=== PATIENT | male | born 1990 | race Caucasian/White ===

== ENCOUNTER → 2020-03-16 | Outpatient (CLI) | payer BC, SELFPAY ==
[2019-09-23 13:11] VITALS: BMI 24.0
== END | disposition home or self-care (01) ==
LOC: LABSPEC 11:10
DX: R50.9 Fever, unspecified (principal); M79.10 Myalgia, unspecified site; R51 Headache
CPT/HCPCS: 87635; G2023; U0003

== ENCOUNTER → 2021-09-02 | Outpatient (CLI) | payer MEDICARE, SELFPAY | END | disposition home or self-care (01) | LOC: LABSPEC 13:40 | PROVIDERS: Referring Provider Physician Assistant; Visit Provider Physician Assistant | DX: Z11.52 Encounter for screening for COVID-19 (principal) | CPT/HCPCS: 87635; U0005; U0003 ==

== ENCOUNTER → 2024-08-24 | Outpatient (CLI) | payer OTHER, SELFPAY ==
--- NOTE | 2024-08-24 12:39 | RAD_ITS ---
INDICATION: CONTUSION OF R RING FINGER WITHOUT DAMAGE TO NAIL EXAMINATION/TECHNIQUE: X-RAY - RIGHT HAND XR Fingers 3 VIEWS COMPARISON: FINDINGS: SOFT TISSUES: No soft tissue swelling or gas. No radiopaque foreign body. BONES/JOINTS: There is a nondisplaced fracture of the distal phalanx of the fourth finger. Preservation of the joint space.. No sclerotic or destructive changes observed. RAD/Finger(s) Min 2 Views IMPRESSION: There is a nondisplaced fracture of the distal phalanx of the fourth finger. Electronically Signed: Aman Flores DO at 16:12 EST Reading Location ID and State: [facility] / [place] Tel [phone], Service support ,
== END | disposition home or self-care (01) ==
LOC: RAD 12:16
PROVIDERS: Referring Provider Nurse Practitioner Family; Visit Provider Nurse Practitioner Family
DX: S60.041A Contusion of right ring finger without damage to nail, initial encounter (principal)
CPT/HCPCS: 73140

== ENCOUNTER 2025-04-06 14:57 | Inpatient (IN) | payer SELFPAY ==
[2025-04-06 14:57] VITALS: BP 146/82; PULSE 112; RESP 14; TEMP 36.1; O2SAT 98; BMI 35.5
--- NOTE | 2025-04-06 15:46 | EX.ED.SAOD ---
HPI History of Present Illness Chief Complaint: Substance Abuse Informant: patient Narrative Narrative: Presents for assistance for fentanyl dependence. He has been using for years. Does not inject he is taking snorts. He uses up to half a gram a day. Last use was this morning. He states by afternoon he would have withdrawal symptoms of cramping and nausea and he cannot sleep. He denies alcohol use denies other recreational drugs. He went to detox in 2020 he states he was able to maintain initially however relapsed. He heard about the program here. Denies suicidal or homicidal ideations. Denies any allergies. Prior similar symptoms: Yes [facility] Medical History Fracture of distal phalanx of right ring finger Chest pain History of stomach ulcers Home Medications ?Medication ?Instructions ?Recorded ?Last Taken ?Type NK 09/30/24 Unknown History Allergy/AdvReac Type Severity Reaction Status Date / Time No Known Allergies Allergy Verified 04/06/25 14:57 Family History Other CVA (cerebral vascular accident) Cancer Diabetes Hypertension Myocardial infarction Social History (Updated 04/06/25 @ 15:47 by Marina Kwon) housing: house Smoking Status: Current every day smoker tobacco type: cigarettes alcohol intake: never ROS ROS ED Constitutional Constitutional ED: Denies fever(s) Cardiovascular Cardiovascular: Denies chest pain Respiratory/Chest Respiratory/Chest: Denies cough Gastrointestinal Gastrointestinal: Denies diarrhea or vomiting Musculoskeletal Musculoskeletal: Denies none Integumentary Denies rash or wounds Neurologic Neurologic: Denies weakness Psychiatric Psychiatric: Denies suicidal ideation or suicidal thoughts EXAM Physical Exam Const Vital Signs: 04/06/25 14:57 04/06/25 16:03 Temperature 97 F L 97 F L Temperature Source Temporal Pulse Rate 112 H 112 H Respiratory Rate 14 14 Blood Pressure 146/82 H 146/82 H Blood Pressure Mean 103 103 Pulse Ox 98 98 Oxygen Delivery Method Room Air Positive well nourished and well developed General Appearance ED: well developed HEENT normocephalic and atraumatic Eyes General Eye ED: Yes normal appearance of both eyes Neck full ROM Resp normal respiratory effort and normal air movement Cardio regular rhythm Rate: tachycardic GI soft to palpation Extremity normal to inspection and full ROM Neuro oriented x3 Psych Psych Narrative: No suicidal or homicidal ideations. Skin no rashes or lesions noted and no wounds Skin Narrative: No needle tracks noted on the arms. MDM MDM MDM Narrative Medical decision making narrative: Interventions / MDM: Differential diagnosis: Fentanyl dependence, fentanyl withdrawal Diagnosis considered but do not suspect: N/A My EKG interpretation: N/A Imaging independently reviewed and interpreted by myself: N/A External documents reviewed: N/A Test considered but not ordered:N/A ED course: Nontoxic here for assistance with fentanyl with dependence. No current withdrawal symptoms. Slight tachycardic on arrival. He is nontoxic. Will obtain labs tox screen and alcohol levels. I did speak with hospitalist Dr. Mcintyre for admission. Labs are pending. Toxicology fentanyl cocaine and THC. Labs stable. Re-evaluation: stable Disposition discussed with patient/family/significant other: Patient Case discussed with consulting clinician: Hospitalist This note was generated with [employer] dictation software. It may contain incorrect words, spelling, and punctuation that were not noted in checking the note before signing. Lab Data Labs: Laboratory Results - last 24 hr 04/06/25 04/06/25 15:55 16:07 WBC 8.5 RBC 5.40 Hgb 16.3 Hct 48.2 MCV 89.3 MCH 30.2 MCHC 33.8 RDW Std Deviation 40.6 RDW Coeff of Monica 12.4 Plt Count 322 MPV 9.6 Immature Gran % (Auto) 0.400 Neut % (Auto) 45.5 L Lymph % (Auto) 40.8 [place] % (Auto) 6.8 Eos % (Auto) 5.9 H Baso % (Auto) 0.6 Absolute Neuts (auto) 3.9 Absolute Lymphs (auto) 3.48 Nucleated RBC % 0 Sodium 139 Potassium 3.2 L Chloride 100 Carbon Dioxide 27.7 Anion Gap 12 BUN 12 Creatinine 0.93 Estim Creat Clear Calc 129.21 Est GFR (MDRD) Non-Af 111 BUN/Creatinine Ratio 12.9 Glucose 62 L Calcium 9.7 Phosphorus 3.1 Magnesium 2.3 H Total Bilirubin 0.22 AST 16 ALT 23 Alkaline Phosphatase 93 Total Protein 7.5 Albumin 4.7 Globulin 2.8 Albumin/Globulin Ratio 1.7 Urine Opiates Screen NEGATIVE U Buprenorphine Qual NEGATIVE Ur Oxycodone Screen NEGATIVE Urine Methadone Screen NEGATIVE Urine Fentanyl Screen PRESUMPTIVE POSITIVE Ur Barbiturates Screen NEGATIVE Ur Phencyclidine Scrn NEGATIVE Ur Amphetamines Screen NEGATIVE U Benzodiazepines Scrn NEGATIVE Urine Cocaine Screen PRESUMPTIVE POSITIVE U Cannabinoids Screen PRESUMPTIVE POSITIVE Ethyl Alcohol < 10.1 Discharge Plan Dx/Rx/DC Orders Clinical Impression: Fentanyl dependence, Opioid withdrawal, Desire for detoxification Disposition Disposition: Acute Care Hospital [facility] Discharge Date/Time: 04/06/25 18:17
[2025-04-06 16:03] VITALS: BP 146/82; PULSE 112; RESP 14; TEMP 36.1; O2SAT 98
[2025-04-06 16:34] LABS: Hematocrit 48.2 % (40-54); Hemoglobin 16.3 g/dL (13.0-16.5); Immature Granulocytes Count 0.030 X10^3/uL (0.0-0.0); Mean Corp Hgb Conc 33.8 g/dL (32-36); Mean Corpuscular Volume 89.3 fL (80-94); Mean Platelet Vol. 9.6 fl (6.2-12.0); NRBC Flagged by Analyzer 0 % (0-5); Platelet Count 322 K/mm3 (150-450); RBC Distribution Width CV 12.4 % (11.6-14.6); RBC Distribution Width SD 40.6 fl (35.1-43.9); Red Blood Count 5.40 M/mm3 (4.6-6.2); White Blood Count 8.5 K/mm3 (4.4-11.0)
[2025-04-06 16:40] LABS: Alcohol, Blood (Medical)-Serum < 10.1 mg/dL (<=10.0)
--- NOTE | 2025-04-06 16:46 | PCM.HP.STD ---
HPI - General General Date of Admission: 04/06/25 Date of Service: 04/06/25 Chief Complaint: Opiate detox HPI Narrative MERRY FRANK, is a 34 M who presented to [facility] ED on 04/06/2025 for opiate detox. Patient snorts fentanyl on a daily basis. No IV drug use. Last use was this morning. He last went through inpatient detox back in 2020. Denies any withdrawal symptoms currently but states that typically in the late afternoon is when he started to have nausea with cramping, and he typically has difficulty sleeping while withdrawing. He denies any alcohol use or other recreational drug use. Denies tobacco use. Notably he states that his girlfriend went through detox here last week and had a good experience, and she is now at an inpatient treatment program in [place]. In the ED he had sinus tachycardia to the 100s but was otherwise hemodynamically stable on room air at rest. CBC and CMP were fairly benign. Given desire for detox, hospitalist was contacted for admission. I saw the patient at bedside in the ED. Patient was very pleasant. Was mildly fatigued appearing but otherwise sitting back comfortably in bed, conversing normally and in no acute distress. Denied any acute concerns at this time. Will be admitted for further management. [facility] Medical History Fracture of distal phalanx of right ring finger Chest pain History of stomach ulcers Home Medications ?Medication ?Instructions ?Recorded ?Last Taken ?Type NK 09/30/24 Unknown History Allergy/AdvReac Type Severity Reaction Status Date / Time No Known Allergies Allergy Verified 04/06/25 14:57 Family History Other CVA (cerebral vascular accident) Cancer Diabetes Hypertension Myocardial infarction Social History (Updated 04/06/25 @ 15:47 by Marina Kwon) housing: house Smoking Status: Current every day smoker tobacco type: cigarettes alcohol intake: never ROS Constitutional Constitutional: Reports fatigue; Denies chills, fever(s) or weakness Eyes Eyes: Denies change in vision Cardiovascular Cardiovascular: Denies chest pain Respiratory/Chest Respiratory/Chest: Denies shortness of breath at rest Gastrointestinal Gastrointestinal: Denies abdominal pain, nausea or vomiting Musculoskeletal Musculoskeletal: Denies arthralgias or myalgias Vital Signs Vital Signs Vital Signs: 04/06/25 14:57 04/06/25 16:03 Temperature 97 F L 97 F L Temperature Source Temporal Pulse Rate 112 H 112 H Respiratory Rate 14 14 Blood Pressure 146/82 H 146/82 H Blood Pressure Mean 103 103 Pulse Ox 98 98 Oxygen Delivery Method Room Air Weight Weight: 103 kg Body Mass Index (BMI) 35.5 Physical Exam Const alert, oriented x3 and no apparent distress Constitutional Narrative: Pleasant younger male, class I obesity, mildly fatigued appearing, otherwise sitting back comfortably in bed, conversing normally, in no acute distress. General Appearance: cooperative and comfortable HEENT normocephalic, head/scalp atraumatic, hearing grossly normal bilaterally, nasal mucous membranes and turbinates normal and moist oral mucous membranes Eyes PERRL, EOMs intact bilaterally and conjunctivae normal Neck full ROM Chest inspection of chest normal Resp normal respiratory effort, normal air movement, no use of accessory muscles and clear to auscultation bilaterally Cardio regular rate, regular rhythm, no murmurs and peripheral pulses 2+ throughout GI normal to inspection, nondistended, normoactive bowel sounds, soft to palpation, non-tender and non-distended Back/Spine normal ROM Extremity normal to inspection, full ROM and no pedal edema Skin no rashes or lesions noted Psych mental status grossly normal Results Lab / Micro Data 04/06/25 15:55 04/06/25 15:55 Labs: Laboratory Results - last 24 hr 04/06/25 15:55: WBC 8.5, RBC 5.40, Hgb 16.3, Hct 48.2, MCV 89.3, MCH 30.2, MCHC 33.8, RDW Std Deviation 40.6, RDW Coeff of Monica 12.4, Plt Count 322, MPV 9.6, Immature Gran % (Auto) 0.400, Neut % (Auto) 45.5 L, Lymph % (Auto) 40.8, [place] % (Auto) 6.8, Eos % (Auto) 5.9 H, Baso % (Auto) 0.6, Absolute Neuts (auto) 3.9, Absolute Lymphs (auto) 3.48, Nucleated RBC % 0, Ethyl Alcohol < 10.1 Assessment & Plan Assessment/Plan (1) Fentanyl dependence: (2) Desire for detoxification: PLAN: Plan Patient is a 34-year-old male who presented to [facility] ED on 04/06/2025 for opiate detox. 1. Opiate abuse with desire for detoxification, polysubstance abuse ? Admit under inpatient status to [facility] as a ramp patient. Case management consulted. Snorts fentanyl daily, last use on morning of admission. No IV drug use. Reported no other recreational drug use but notably urine drug screen is positive for fentanyl, cocaine and cannabinoids. Will treat with Subutex taper and other as needed medications per opiate withdrawal order set. Strongly encouraged cessation on discharge. 2. Mild hypokalemia ? Potassium 3.2 on admit. Mag and Phos normal. Repleted in ED, follow-up a.m. BMP. 3. Class I obesity ? BMI 34 on admit. Encouraged lifestyle modifications. DVT prophylaxis: Lovenox CODE STATUS: Full code, verified Expected disposition: TBD Total clinical time spent by myself addressing the patient's medical issues, reviewing all the data, and collaborating with patient's care team: 55 minutes. Charges/Coding Visit Charges Inpatient E&M: 48463 Init Hosp L2
[2025-04-06 16:48] LABS: AST(SGOT) 16 U/L (<=37); Alanine Aminotransfer ALT/SGPT 23 U/L (<=46); Albumin, Serum 4.7 g/dL (3.5-5.0); Alkaline Phosphatase 93 U/L (40-129); Anion Gap 12 (5-15); BUN 12 mg/dL (4-19); BUN/Creat Ratio 12.9 RATIO (10-20); Calcium,Total 9.7 mg/dL (7.6-11.0); Carbon Dioxide 27.7 mmol/L (21.0-32.0); Chloride 100 mmol/L (98-108); Estimated Creatinine Clearance 129.21 ml/min (50-250); Globulin 2.8 g/dL (2.2-4.2); Glucose 62 mg/dL (70-99); Potassium 3.2 mmol/L (3.3-5.1)
[2025-04-06 16:55] LABS: Barbiturate Urine NEGATIVE (< 200 ng/mL); Benzodiazepine Urine NEGATIVE (< 200 ng/mL); PCP Urine NEGATIVE (< 25 ng/mL); THC Urine PRESUMPTIVE POSITIVE (< 50 ng/mL)
[2025-04-06 17:00] VITALS: BP 112/71; PULSE 77; O2SAT 99
[2025-04-06 18:19] VITALS: BMI 34.4
[2025-04-06 18:21] LABS: Magnesium 2.3 mg/dL (1.5-2.2)
[2025-04-06] MEDS: Potassium Chloride Oral Tablet 20 MEQ 40 MEQ PO (18:41)
[2025-04-06 20:16] VITALS: BP 165/72; PULSE 82; RESP 18; TEMP 36.8; O2SAT 97
[2025-04-07 02:26] VITALS: BP 160/98; PULSE 65; RESP 16; TEMP 36.8; O2SAT 99
[2025-04-07 04:29] VITALS: BP 164/99; PULSE 72; RESP 18; TEMP 36.8; O2SAT 99
[2025-04-07 06:15] LABS: Hematocrit 44.7 % (40-54); Hemoglobin 15.3 g/dL (13.0-16.5); Mean Corp Hgb Conc 34.2 g/dL (32-36); Mean Corpuscular Volume 88.5 fL (80-94); Mean Platelet Vol. 9.3 fl (6.2-12.0); Platelet Count 297 K/mm3 (150-450); RBC Distribution Width CV 12.6 % (11.6-14.6); RBC Distribution Width SD 41.1 fl (35.1-43.9); Red Blood Count 5.05 M/mm3 (4.6-6.2); White Blood Count 8.7 K/mm3 (4.4-11.0)
[2025-04-07 06:16] VITALS: BP 162/111; PULSE 76; RESP 16; TEMP 36.7; O2SAT 100
[2025-04-07] MEDS: hydrOXYzine PAM 25 MG Capsule 50 MG PO ×2 (06:26→22:30)
[2025-04-07 06:40] LABS: Anion Gap 7 (5-15); BUN 9 mg/dL (4-19); BUN/Creat Ratio 11.7 RATIO (10-20); Calcium,Total 8.7 mg/dL (7.6-11.0); Carbon Dioxide 28.5 mmol/L (21.0-32.0); Chloride 106 mmol/L (98-108); Estimated Creatinine Clearance 153.71 ml/min (50-250); Glucose 92 mg/dL (70-99); Potassium 4.5 mmol/L (3.3-5.1)
[2025-04-07 07:58] VITALS: BP 134/88; PULSE 61; RESP 16; TEMP 36.6; O2SAT 100
--- NOTE | 2025-04-07 13:04 | ADDICTION ---
This director underwriter sales met with PT to conduct ASAM, MSE, AUDIT, DUDIT assessments and to plan for d/c. PT A+Ox4 and participated actively. All assessments completed. PT plans to f/u with outpatient treatment services, however he wanted to discuss it with his family upon d/c. This worker offered resources based on his listed wants and needs. PT did not indicate a need for [facility] transportation post d/c from [facility].
[2025-04-07 13:50] VITALS: BP 162/72; PULSE 87; RESP 16; TEMP 37.2; O2SAT 98
--- NOTE | 2025-04-07 15:33 | CHAPLAIN ---
Type of Pastoral Visit _x__ Initial Visit ___ Follow-up Visit ___ On-call Visit ___ General Patient Visit ___ Spiritual Assessment ___ Family Conference ___ Bereavement ___ Rapid Response ___ Code Blue ___ Other (describe below) Pastoral Care Referral From _x__ Patient ___ Family ___ Nurse ___ Physician ___ Cia Agent ___ Clinical Trial Educator ___ Other (describe below) Sacrament/Intervention _x__ Active listening ___ Anointing ___ Synagogue ___ Bereavement ___ Communion ___ Letty exploration ___ ___ Life review _x__ Prayer ___ Reconciliation ___ Sacrament of Sick _x__ Supportive presence ___ Wedding ___ Other (describe below) Pastoral Comments offer of support readily accepted and pt admits that he has tried numerous times to stop the addiction but has been unsuccessful, but I have to this time, I can't keep doing this, I'm done; affirmed desire and passion of patient; asked pt about his support, plans, and letty; pt reports on good family support, willingness to go to rehab, and open to letty although this hasn't been a part of his life; pt denies needing anything but repeats that he has appreciated the offer and the time given; pt does welcome a prayer at this time
--- NOTE | 2025-04-07 15:55 | CASEMGMT ---
Social Work- SW met with pt regarding self-pay status. Pt met with Dona/[employer] rep. Pend number: [id number]. SW provided Marilyn Garcia and [facility]DY card. Pt reports no additional resources needed at this time. RAY Artis
--- NOTE | 2025-04-07 16:29 | PN.HOSP_ITS ---
Reason for Visit Chief Complaint: Opiate detox Subjective Subjective Patient was beginning to feel restless in his legs earlier but is feeling better after getting Subutex, reports overall still feeling generally unwell but progressively improving Objective Data Objective Data Vital Signs: Vital Signs Temp Pulse Resp BP Pulse Ox O2 Del Method 98.9 F 87 16 162/72 H 98 Room Air 04/07/25 13:50 04/07/25 13:50 04/07/25 13:50 04/07/25 13:50 04/07/25 13:50 04/07/25 13:50 Oxygen Delivery Method Room Air Weight: 99.96 kg Body Mass Index (BMI) 34.4 Intake & Output: Intake and Output for Last 24 Hours 04/05/25 04/06/25 04/07/25 23:59 23:59 23:59 Intake Total 600 / 600 Balance 600 / 600 Lab / Micro Data 04/07/25 05:30 04/07/25 05:30 Labs: Laboratory Results - last 24 hr 04/06/25 15:55: WBC 8.5, RBC 5.40, Hgb 16.3, Hct 48.2, MCV 89.3, MCH 30.2, MCHC 33.8, RDW Std Deviation 40.6, RDW Coeff of Monica 12.4, Plt Count 322, MPV 9.6, Immature Gran % (Auto) 0.400, Neut % (Auto) 45.5 L, Lymph % (Auto) 40.8, [place] % (Auto) 6.8, Eos % (Auto) 5.9 H, Baso % (Auto) 0.6, Absolute Neuts (auto) 3.9, Absolute Lymphs (auto) 3.48, Nucleated RBC % 0, Sodium 139, Potassium 3.2 L, Chloride 100, Carbon Dioxide 27.7, Anion Gap 12, BUN 12, Creatinine 0.93, Estim Creat Clear Calc 129.21, Est GFR (MDRD) Non-Af 111, BUN/Creatinine Ratio 12.9, G lucose 62 L, Calcium 9.7, Phosphorus 3.1, Magnesium 2.3 H, Total Bilirubin 0.22, AST 16, ALT 23, Alkaline Phosphatase 93, Total Protein 7.5, Albumin 4.7, Globulin 2.8, Albumin/Globulin Ratio 1.7, Ethyl Alcohol < 10.1 04/06/25 16:07: Urine Opiates Screen NEGATIVE, U Buprenorphine Qual NEGATIVE, Ur Oxycodone Screen NEGATIVE, Urine Methadone Screen NEGATIVE, Urine Fentanyl Screen PRESUMPTIVE POSITIVE, Ur Barbiturates Screen NEGATIVE, Ur Phencyclidine Scrn NEGATIVE, Ur Amphetamines Screen NEGATIVE, U Benzodiazepines Scrn NEGATIVE, Urine Cocaine Screen PRESUMPTIVE POSITIVE, U Cannabinoids Screen PRESUMPTIVE POSITIVE 04/07/25 05:30: WBC 8.7, RBC 5.05, Hgb 15.3, Hct 44.7, MCV 88.5, MCH 30.3, MCHC 34.2, RDW Std Deviation 41.1, RDW Coeff of Monica 12.6, Plt Count 297, MPV 9.3, Sodium 142, Potassium 4.5, Chloride 106, Carbon Dioxide 28.5, Anion Gap 7, BUN 9, Creatinine 0.77, Estim Creat Clear Calc 153.71, Est GFR (MDRD) Non-Af 121, BUN/Creatinine Ratio 11.7, Glucose 92, Calcium 8.7 Physical Exam Narrative General: Alert, oriented, no apparent distress HEENT: Atraumatic, normocephalic Eyes: extraocular movements grossly intact Neck: Supple Respiratory: normal respiratory effort Cardiovascular: no edema appreciated GI: nondistended Extremities: Moving all extremities Neuro: No overt focal neurological deficits Psych: Cooperative Assessment & Plan Assessment/Plan (1) Fentanyl dependence: (2) Desire for detoxification: PLAN: Plan # Opiate abuse with desire for detoxification, polysubstance abuse ? Admit under inpatient status to [facility] as a ramp patient. Case management consulted. Snorts fentanyl daily, last use on morning of admission. No IV drug use. Reported no other recreational drug use but notably urine drug screen is positive for fentanyl, cocaine and cannabinoids. Will treat with Subutex taper and other as needed medications per opiate withdrawal order set. Strongly encouraged cessation on discharge. -04/07: Patient progressively improving, inpatient rehab was offered however patient has opted for follow-up with outpatient treatment services. Continue Subutex taper, likely DC on Thursday depending on patient's progress and symptoms # Mild hypokalemia ? Potassium 3.2 on admit. Mag and Phos normal. Repleted in ED, follow-up a.m. BMP. -04/07: Resolved #DVT ppx: Lovenox subcu Chiara Dennis MD Charges/Coding Visit Charges Inpatient E&M: 90887 Subs Hosp L1
[2025-04-07 22:14] VITALS: BP 146/88; PULSE 58; RESP 18; TEMP 36.8; O2SAT 99
[2025-04-08 06:32] VITALS: BP 129/90; PULSE 76; RESP 14; TEMP 36.9; O2SAT 98
[2025-04-08 08:35] VITALS: BP 154/98; PULSE 65; RESP 16; TEMP 36.9; O2SAT 99
--- NOTE | 2025-04-08 11:31 | ADDICTION ---
This junior copywriter met with client to discuss outpatient treatment options. Pt indicated interest in f/u with outpatient services with [facility]. He was provided with information for both agencies, including range of services, addresses and contact information. Pt did not indicate need for transportation.
[2025-04-08 14:14] VITALS: BP 155/95; PULSE 68; RESP 16; TEMP 37; O2SAT 100
--- NOTE | 2025-04-08 17:35 | PCM.PN.HOSP ---
Reason for Visit Chief Complaint: Opiate detox Subjective Subjective Patient continues to improve, no new or acute complaints, resting comfortably Objective Data Objective Data Vital Signs: Vital Signs Temp Pulse Resp BP Pulse Ox O2 Del Method 98.6 F 68 16 155/95 H 100 Room Air 04/08/25 14:14 04/08/25 14:14 04/08/25 14:14 04/08/25 14:14 04/08/25 14:14 04/08/25 14:50 Oxygen Delivery Method Room Air Weight: 99.96 kg Body Mass Index (BMI) 34.4 Intake & Output: Intake and Output for Last 24 Hours 04/06/25 04/07/25 04/08/25 23:59 23:59 23:59 Intake Total 1350 / 1350 Balance 1350 / 1350 Lab / Micro Data 04/07/25 05:30 04/07/25 05:30 Physical Exam Narrative General: Resting comfortably, wakes up and answers questions appropriately HEENT: Atraumatic, normocephalic Eyes: extraocular movements grossly intact Neck: Supple Respiratory: normal respiratory effort Cardiovascular: no edema appreciated GI: nondistended Extremities: Moving all extremities Neuro: No overt focal neurological deficits Psych: Cooperative Assessment & Plan Assessment/Plan (1) Fentanyl dependence: (2) Desire for detoxification: PLAN: Plan # Opiate abuse with desire for detoxification, polysubstance abuse ? Admit under inpatient status to [facility] as a ramp patient. Case management consulted. Snorts fentanyl daily, last use on morning of admission. No IV drug use. Reported no other recreational drug use but notably urine drug screen is positive for fentanyl, cocaine and cannabinoids. Will treat with Subutex taper and other as needed medications per opiate withdrawal order set. Strongly encouraged cessation on discharge. -04/07: Patient progressively improving, inpatient rehab was offered however patient has opted for follow-up with outpatient treatment services. Continue Subutex taper, likely DC on Thursday depending on patient's progress and symptoms -04/08: DC tomorrow with outpatient follow-up #DVT ppx: Lovenox subcu Chiara Dennis MD Charges/Coding Visit Charges Inpatient E&M: 62629 Subs Hosp L1
[2025-04-08 20:50] VITALS: BP 149/86; PULSE 60; RESP 16; TEMP 36.6; O2SAT 100
[2025-04-09 04:09] VITALS: BP 140/82; PULSE 68; RESP 16; TEMP 36.7; O2SAT 100
[2025-04-09 08:27] VITALS: BP 168/82; PULSE 57; RESP 16; TEMP 36.6; O2SAT 98
--- NOTE | 2025-04-09 10:39 | DCINST_ITS ---
Discharge Instructions DC O2, CPAP, BIPAP needs Home O2 Discharge instructions: No Dressing / Incision Discharge Activity: Return to Normal Activity Follow Up Care Test Results: Test results from this visit will be discussed in further detail at your follow- up appointment, if applicable. Discharge Plan Admission Admit Date/Time: 04/06/25 16:46 Primary Reason for Your Visit: Opioid detox Attending Provider: Chiara Dennis Primary Care Provider: Care Physician,No Primary Consulting Providers: Rodney Mcintyre Instructions Patient Instructions: ED Opiate Abuse, ED Opioid Withdrawal Additional Instructions / Restrictions: - Smoking cessation and strongly advised - Please follow-up with outpatient services as previously discussed with [facility] coordinator Discharge Orders/Prescriptions Prescriptions: No Action NK Referrals / Follow Up: Care Physician,No Primary [Primary Care Provider] - Disposition Disposition (needs filled in before D/C Order can be placed): Home, Self Care
--- NOTE | 2025-04-09 10:40 | DS.PCM_ITS ---
Providers Date of Admission: 04/06/25 Date of Discharge: 04/09/25 Primary Care Physician: No Primary Care Phys Reason For Visit: OPIOD WITHDRAWAL Diagnosis Discharge Diagnosis (1) Fentanyl dependence: Status: Acute Code(s): F11.20 - Opioid dependence, uncomplicated (2) Desire for detoxification: Status: Acute Plan # Opiate abuse with desire for detoxification #Tobacco use d/o Chiara Dennis MD Medications at Discharge Home Medications NK 09/30/24 Hospital Course Summary of Care Provided Minutes Spent on Discharge: 20 Hospital Course: Patient was admitted 04/06 requesting detox from fentanyl/opioids. Patient was admitted and detox protocol ordered. They completed their detox and were discharged in stable condition. On the day of discharge no new medical complaints voiced. Physical Exam Narrative General: Alert, oriented, no apparent distress HEENT: Atraumatic, normocephalic Eyes: extraocular movements grossly intact Neck: Supple Respiratory: normal respiratory effort Cardiovascular: no edema appreciated GI: nondistended Extremities: Moving all extremities Neuro: No overt focal neurological deficits Psych: Cooperative Weight / BMI Weight Weight: 99.96 kg Body Mass Index (BMI) 34.4 ABG / Lab / Microbiology Data 04/07/25 05:30 04/07/25 05:30 D/C Instructions DC O2, CPAP, BIPAP Needs Home O2 Discharge instructions: No Meaningful Use Info Meaningful Use Meaningful Use Diagnoses (Choose all that apply): None applicable Discharge Plan Admission Admit Date/Time: 04/06/25 16:46 Primary Reason for Your Visit: Opioid detox Attending Provider: Chiara Dennis Primary Care Provider: Care Physician,No Primary Consulting Providers: Rodney Mcintyre Instructions Patient Instructions: ED Opiate Abuse, ED Opioid Withdrawal Additional Instructions / Restrictions: - Smoking cessation and strongly advised - Please follow-up with outpatient services as previously discussed with [facility] coordinator Discharge Orders/Prescriptions Prescriptions: No Action NK Referrals / Follow Up: Care Physician,No Primary [Primary Care Provider] - Disposition Disposition (needs filled in before D/C Order can be placed): Home, Self Care Charges/Coding Visit Charges Inpatient E&M: 21366 Disch Hosp
== END 2025-04-09 12:52 | disposition home or self-care (01) | DRG 897 ==
LOC: ED 16:05 → MS3 17:28
PROVIDERS: Admitting Provider Hospitalist; Emergency Provider Emergency Medicine; Referring Provider Emergency Medicine; Visit Provider Internal Medicine
DX: F11.23 Opioid dependence with withdrawal (principal); E66.811 Obesity, class 1; F17.210 Nicotine dependence, cigarettes, uncomplicated; E87.6 Hypokalemia; Z68.35 Body mass index [BMI] 35.0-35.9, adult
CPT/HCPCS: 36415; 80048; 80053; 80307; 82077; 83735; 84100; 85025; 85027; 99283; A4216